=== PATIENT | female | born 1965 | race Caucasian/White ===

== ENCOUNTER → 2017-04-05 16:44 | Outpatient (CLI) | payer OTHER | END | disposition home or self-care (01) | LOC: D.MAMMO 15:00 | DX: N64.59 Other signs and symptoms in breast (principal) ==

== ENCOUNTER → 2017-08-09 14:15 | Outpatient (CLI) | payer OTHER | END | disposition home or self-care (01) | LOC: D.LAB 14:15 | DX: R31.29 Other microscopic hematuria (principal) ==

== ENCOUNTER 2017-09-08 09:32 | Emergency (ER) | payer OTHER ==
[2017-09-08 10:00] LABS: HEMATOCRIT 41.5 % (36.0-48.0); HEMOGLOBIN 14.6 g/dL (12-16); LYMPHOCYTES 10.5 % (15-50); MCH 30.7 pg (26.0-34.0); MCHC 35.2 g/dL (31.0-37.0); MCV 87.2 fL (80.0-100.0); MEAN PLATELET VOLUME 8.6 fL (7.4-10.4); NEUTROPHILS 86.2 % (40-80); PLATELET COUNT 339 10x3/uL (130-400); RBC 4.76 10x6/uL (4.00-5.40); RDW 11.3 % (11.5-14.5); WBC 15.4 10x3/uL (4.8-10.8)
[2017-09-08 10:14] LABS: ALBUMIN 3.9 g/dL (3.4-5.0); ANION GAP 16.5 mmol/L (8-16); BILIRUBIN - TOTAL 0.68 mg/dL (0.2-1.3); CALCIUM 8.7 mg/dL (8.5-10.1); CARBON DIOXIDE 21.8 mmol/L (21.0-32.0); CREATININE - SERUM 0.9 mg/dL (0.6-1.3); POTASSIUM - SERUM 4.3 mmol/L (3.5-5.1); PROTEIN - SERUM 7.8 g/dL (6.4-8.2)
[2017-09-08 10:15] LABS: APPEARANCE CLEAR (CLEAR); BACTERIA MODERATE /hpf (NONE SEEN); BILIRUBIN NEGATIVE (NEGATIVE); COLOR YELLOW (YELLOW); EPITHELIAL CELLS 0-5 /hpf (0-5); GLUCOSE NEGATIVE (NEGATIVE); HYALINE CAST OCC /lpf (NONE SEEN); KETONE NEGATIVE (NEGATIVE); MUCUS >1+ /lpf (NONE SEEN); NITRITE NEGATIVE (NEGATIVE); PROTEIN NEGATIVE (NEGATIVE); RED CELLS - URINE 0-5 /hpf (0-5); UROBILINOGEN NORMAL (NORMAL); WHITE CELLS - URINE OCC /hpf (0-5)
[2017-09-08 10:16] LABS: AMORPHOUS SEDIMENT <1+ /lpf (NONE SEEN)
== END 2017-09-08 12:15 | disposition left against medical advice (07) ==
LOC: D.ER 09:32
PROVIDERS: Emergency Medicine
DX: R10.84 Generalized abdominal pain (principal)

== ENCOUNTER → 2017-09-10 14:40 | Outpatient (CLI) | payer OTHER | END | disposition home or self-care (01) | LOC: D.NM 14:40 | DX: R10.11 Right upper quadrant pain (principal) ==

== ENCOUNTER 2018-05-20 19:00 | Outpatient (CLI) | payer OTHER | END 2018-05-20 20:00 | disposition home or self-care (01) | LOC: D.MAMMO 19:00 | DX: Z12.31 Encounter for screening mammogram for malignant neoplasm of breast (principal) ==

== ENCOUNTER 2020-01-01 13:15 | Outpatient (CLI) | payer OTHER | END 2020-01-01 14:15 | disposition home or self-care (01) | LOC: D.MAMMO 13:15 | PROVIDERS: ATTEND Family Medicine | DX: Z12.31 Encounter for screening mammogram for malignant neoplasm of breast (principal) ==

== ENCOUNTER → 2020-12-12 16:15 | Outpatient (CLI) | payer OTHER ==
[2020-05-06 06:01] VITALS: BMI 28.2
[~2020-12-12 16:15] MED LIST: BACLOFEN10 MG PO; HYDROCODON-ACE1 EA10 PO
== END | disposition home or self-care (01) ==
LOC: D.MAMMO 16:15
PROVIDERS: ATTEND Family Medicine
DX: Z12.31 Encounter for screening mammogram for malignant neoplasm of breast (principal)